=== PATIENT | female | born 1980 | race Caucasian/White ===

== ENCOUNTER 2023-04-09 06:22 | Day surgery (SDC) | payer MEDICAID ==
[~2023-04-09] VITALS: Ht 172.7 cm; Wt 69.0 kg
[2023-04-09] VITALS (8 sets, daily range): BP systolic 123–136; BP diastolic 53–92; PULSE 65–76; RESP 16; TEMP 98.2; O2SAT 93–100
[~2023-04-09 06:22] MED LIST: NO HOME MEDS
[2023-04-09] MEDS: albumin 25% 100mL bottle x 1 IV PRN ×2 (08:06→08:56)
== END 2023-04-09 09:35 | disposition home or self-care (01) ==
LOC: SSTAY O 06:22
PROVIDERS: ATTEND Radiology Vascular & Interventional Radiology
DX: R18.8 Other ascites (principal); R14.0 Abdominal distension (gaseous); Z83.3 Family history of diabetes mellitus
CPT/HCPCS: 49083; C1729; J3490; P9047; A6258; A6449

== ENCOUNTER 2023-06-18 09:20 | Emergency (ER) | payer MEDICAID ==
[~2023-06-18] VITALS: Ht 174 cm; Wt 69.3 kg
[2023-06-18 13:36] VITALS: BP 107/70; PULSE 104; RESP 15; O2SAT 99
== END 2023-06-18 13:37 | disposition home or self-care (01) ==
LOC: ER 09:21
DX: R18.8 Other ascites (principal); K21.9 Gastro-esophageal reflux disease without esophagitis; Z79.899 Other long term (current) drug therapy
CPT/HCPCS: 99285

== ENCOUNTER 2023-10-28 09:51 | Outpatient (CLI) | payer MEDICAID ==
[~2023-10-28 09:51] MED LIST changes: +iohexol 300mg/ml 100ml inj. ONE
[2023-10-28] MEDS ORDERED: diphenhydrAMINE 25mg capsule PO ONE (12:05)
== END 2023-10-28 23:59 | disposition home or self-care (01) ==
LOC: RAD 09:51
PROVIDERS: ATTEND Nurse Practitioner Family
DX: N28.1 Cyst of kidney, acquired (principal); R18.0 Malignant ascites
CPT/HCPCS: 71260; 74177; J3490; Q0163; Q9967

== ENCOUNTER 2025-04-23 17:29 | Emergency (ER) | payer MEDICAID ==
[~2025-04-23] VITALS: Ht 172.7 cm; Wt 71.3 kg
[~2025-04-23 17:29] MED LIST changes: -iohexol 300mg/ml 100ml inj. ONE
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
[2025-04-23] MEDS: LIDOcaine 1% 30ml preserv. free vial IJ STA (19:01)
[2025-04-23] MEDS ORDERED: CEPH-585 PO (22:11)
[2025-04-23 22:39] VITALS: BP 113/67; PULSE 71; RESP 16; TEMP 97.7; O2SAT 98
== END 2025-04-23 22:50 | disposition home or self-care (01) ==
LOC: ER 17:30
DX: S01.81XA Laceration without foreign body of other part of head, initial encounter (principal); V89.2XXA Person injured in unspecified motor-vehicle accident, traffic, initial encounter; Y93.89 Activity, other specified; Y92.410 Unspecified street and highway as the place of occurrence of the external cause; Y99.8 Other external cause status
CPT/HCPCS: 12011; 70450; 70486; 72125; 99284; A6258; A6449